=== PATIENT | male | born 1960 | race Caucasian/White ===

== ENCOUNTER 2019-11-20 12:43 | Outpatient (CLI) | payer OTHER, SELFPAY ==
[2019-11-20 13:56] LABS: Blood Urea Nitrogen 19 mg/dL (9-20); Calcium 10.6 mg/dL (8.4-10.2); Carbon Dioxide 30 mmol/L (22-30); Chloride 100 mmol/L (98-107); Estimated Glomerular Filt Rate > 60; Glucose 169 mg/dL (75-110); Potassium 4.1 mmol/L (3.4-5.0); Sodium 139 mmol/L (137-145)
[2019-11-20 13:58] LABS: Hemoglobin A1C 6.9 % (<5.7)
== END 2019-11-20 12:44 | disposition home or self-care (01) ==
PROVIDERS: PCP Internal Medicine; Visit Provider Internal Medicine
DX: E11.9 Type 2 diabetes mellitus without complications (principal)
CPT/HCPCS: 36415; 80048; 83036

== ENCOUNTER 2019-11-25 10:30 | Outpatient (RCR) | payer OTHER, SELFPAY ==
--- NOTE | 2019-10-28 14:01 | PTOPEVAL ---
Thank you for referring this patient to [facility]. Please review, sign, date and return this plan of care RUPERT. Pt referred to therapy due to right shoulder pain. He demonstrates decreased shoulder motion with scapular and shoulder weakness. He requires additional skilled therapy to address UE impairment and improve function to achieve therapy goals. Cont PT 2x/wk x 4-6 wk. I agree with and certify that the following plan of care is medically necessary. Referring Physician Date Attending Provider: Sara Mtoa NP Referring Provider: *PT Outpatient Evaluation Start: 10/28/19 10:30 Freq: Status: Active Protocol: Document 10/28/19 10:31 CAP (Rec: 10/28/19 11:26 [facility] [email or web address]) Therapy Assessment Status Assessment Status Assessment Status Evaluation Outpatient Past Medical History Cardiovascular History Hx Hypertension Yes Musculoskeletal History Hx Back Pain Yes: 40 years Hx Fractures Yes: ribs Hx Other Musculoskeletal Disorders Yes: cervical and lumbar radiculopathy Endocrine History Hx Diabetes Yes Evaluation Information Problem Diagnosis right shoulder pain Onset 2 years Cause unknown Subjective Information He fell Jul 2019 and broke Query Text:As Reported By Patient/ ribs on right side. He reached Family with his right arm when he fell. States the fall caused his shoulder pain to increase. He reports limitations with all reaching act due to pain. He is able to perform the motion as necessary. He is able to carry objects if held in lower position. Unable to perform carrying above chest level. He reports tightness and radiating symptoms of soila UE. He does not perform regular stretching or fitness program Previous Treatments Previous Treatments For This Problem no Prior Level of Function Activity Level (Last 3 Months) Occupation caregiver of parents Hand Dominance Right Activity of Daily Living Ability Independent Indoor/Home Mobility Independent Community Mobility Independent Cooking Yes Cleaning Yes Laundry Yes Shopping Yes Driving Yes Medications Home Meds (Include: OTC, RX, Vitamins, muscle relaxtor and
--- NOTE | 2019-11-02 15:27 | PCPTNOTE ---
Patient did not show up for scheduled appointment this date.
--- NOTE | 2019-11-04 14:31 | PCPTNOTE ---
Patient called & cancelled scheduled appointment this date unable to get car started.
--- NOTE | 2019-11-04 15:08 | PCPTNOTE ---
Patient did not show up for scheduled appointment this date. Called pt regarding 3rd no show/cancel therapy appt for the month. left message for pt to call otherwise remaining appts will be removed.
--- NOTE | 2019-11-13 10:59 | PCPTNOTE ---
Patient did not show up for scheduled appointment this date. Called and left message regarding his repeated no show. Reminded him of his appt next week. If he does not attend his appt, will cancel his remaining appt and plan for DC.
--- NOTE | 2019-11-25 11:40 | PTOPEVAL ---
Thank you for referring this patient to [facility]. Please review, sign, date and return this plan of care RUPERT. Pt has received 6 therapy visits to address chronic right shoulder pain. He demonstrates improved shoulder motion with improved soila shoulder strength. He reports no changes with pain or UE function. He is progressing slowly towards therapy goals. Recommend additional skilled therapy 2x/wk x 3-4 wk to achieve therapy goals I agree with and certify that the following plan of care is medically necessary. Referring Physician Date Attending Provider: Sara Mota NP Referring Provider: TulioPT Outpatient Re-Evaluation Start: 10/28/19 10:30 Freq: Status: Active Protocol: Document 11/25/19 10:31 MELY (Rec: 11/25/19 11:10 [facility] [email or web address]) Therapy Assessment Status Assessment Status Assessment Status Re-evaluation Outpatient Past Medical History Evaluation Information Problem Diagnosis right shoulder pain Onset 2 years Cause unknown Additional Evaluation Detail He fell Jul 2019 and broke ribs on right side. He reached with his right arm when he fell. States the fall caused his shoulder pain to increase. He does not perform regular stretching or fitness program. Subjective Information update: He reports cont pain of right shoulder that increases with motion in all directions. He is able to carrying objects without changes in pain, but has pain if lifting overhead. He reports intermittent numbness and tingling into soila UE and hands. Denies a specific activity that causes the symptoms. Reports he is performing his HEP daily. Does not feel the shoulder motion has not changed. Pain Assessment Timing of Pain Assessment Timing of Pain Assessment Re-assessment Pain Scale Pain Scale Used Numeric (1 - 10) Self Report Pain Assessment Right Shoulder(s) Reported Pain Level 2 Pain Description Aching,With Movement Pain Frequency Chronic Current Pain Intensity 2 Greatest Pain Intensity 9 Pain Aggravating Factors ADL's,Exercise/Activity, Lifting Pain Behaviors None Pain Score Pain Score
--- NOTE | 2019-12-01 11:37 | PCPTNOTE ---
Patient called & cancelled scheduled appointment this date due to stating he didn't want to chance getting sick due to caring for elderly mother.
--- NOTE | 2019-12-03 08:27 | PCPTNOTE ---
Patient called & cancelled scheduled appointment this date due to no reason provided. He does have additional appt scheduled.
--- NOTE | 2019-12-07 13:56 | PCPTNOTE ---
Patient did not show up for scheduled appointment this date. Will DC pt due to repeated NS/cancel. Multiple attempts have been made to contact pt regarding his therapy.
--- NOTE | 2019-12-07 14:01 | PCPTNOTE ---
Admitting Provider: Attending Provider: Sara Mota NP Patient:Matt Hodges Date of :1960 Patient has not returned for any further treatments since 11/25/2019, therefore he will be discharged from therapy at this time. He was seen for 6 therapy visits from 10/28/19-12/07/19 with 6 no show or cancelled appointments. The goals have been partially achieved. Thank you for referring this patient to [facility]. Please review, sign, date and return this discharge summary RUPERT. I have been updated about the patient's current status and I agree with discharge from the above service at this time. Referring Physician Date
== END 2020-01-12 12:30 | disposition home or self-care (01) ==
LOC: ANHPT 10:30
PROVIDERS: PCP Internal Medicine; Visit Provider Nurse Practitioner
DX: M25.511 Pain in right shoulder (principal)
CPT/HCPCS: 97110; 97140; 97162

== ENCOUNTER 2020-03-07 10:07 | Outpatient (CLI) | payer OTHER, SELFPAY ==
[2020-03-07 10:49] LABS: Hemoglobin A1C 6.6 % (<5.7)
[2020-03-07 10:54] LABS: Blood Urea Nitrogen 22 mg/dL (9-20); Carbon Dioxide 29 mmol/L (22-30); Chloride 101 mmol/L (98-107); Cholesterol 192 mg/dL (0-200); Estimated Glomerular Filt Rate > 60; Glucose 115 mg/dL (75-110); HDL Direct 43 mg/dL; Potassium 3.8 mmol/L (3.4-5.0); Sodium 139 mmol/L (137-145); Triglycerides 228 mg/dL (<150)
[2020-03-07 11:04] LABS: LDL Cholesterol Direct 109 mg/dL
== END 2020-03-07 10:08 | disposition home or self-care (01) ==
LOC: ANHLAB 10:09
PROVIDERS: PCP Internal Medicine; Visit Provider Internal Medicine
DX: E11.9 Type 2 diabetes mellitus without complications (principal)
CPT/HCPCS: 36415; 80048; 80061; 83036

== ENCOUNTER 2020-06-30 16:08 | Outpatient (CLI) | payer OTHER, SELFPAY ==
[2020-06-30 16:33] LABS: Basophils Absolute Auto 0.1 K/mm3 (0.0-0.1); Basophils Percent Auto 0.6 % (0.2-1.2); Eosinophils Absolute Auto 0.5 K/mm3 (0-0.3); Eosinophils Percent Auto 6.5 % (0-4.4); Hematocrit 45.5 % (42.0-52.0); Hemoglobin 15.7 g/dL (14.0-18.0); Immature Granulocyte Absolute 0.04 K/mm3 (0.00-0.031); Immature Granulocyte Percent A 0.5 % (0-0.5); Lymphocytes Absolute Auto 2.14 K/mm3 (0.9-3.2); Lymphocytes Percent Auto 27.4 % (18.3-44.2); Mean Corpuscular HGB Conc 34.5 g/dl (32-36); Mean Corpuscular Hemoglobin 31.2 pg (26-34); Mean Corpuscular Volume 90.3 fl (80-100); Mean Platelet Volume 10.2 fl (7.4-10.4); Monocytes Absolute Auto 0.7 K/mm3 (0.1-0.6); Monocytes Percent Auto 8.5 % (2.6-8.5); Neutrophils Absolute Auto 4.4 K/mm3 (1.3-6.7); Neutrophils Percent Auto 56.5 % (45.5-73.1); Platelet Count Result 230 k/mm3 (150-375); Red Blood Count 5.04 M/mm3 (4.6-6.20); Red Cell Distribution Width 13.2 % (11.5-14.5); White Blood Count 7.8 K/mm3 (4.5-10.0)
[2020-06-30 16:59] LABS: Alanine Aminotransferase 31 U/L (4-50); Albumin Level 4.4 g/dL (3.5-5.1); Alkaline Phosphatase 67 U/L (38-126); Anion Gap 7 mmol/L (8-16); Aspartate Amino Transferase 26 U/L (17-59); Bilirubin,Total 0.6 mg/dL (0.2-1.3); Blood Urea Nitrogen 17 mg/dL (9-20); Calcium 9.8 mg/dL (8.4-10.2); Carbon Dioxide 30 mmol/L (22-30); Chloride 104 mmol/L (98-107); Estimated Glomerular Filt Rate > 60; Glucose 112 mg/dL (75-110); Potassium 3.8 mmol/L (3.4-5.0); Sodium 141 mmol/L (137-145)
[2020-06-30 18:07] LABS: Hemoglobin A1C 6.8 % (<5.7)
== END 2020-06-30 16:09 | disposition home or self-care (01) ==
LOC: ANHLAB 16:11
PROVIDERS: PCP Internal Medicine; Visit Provider Nurse Practitioner
DX: E11.49 Type 2 diabetes mellitus with other diabetic neurological complication (principal)
CPT/HCPCS: 36415; 80053; 83036; 85025

== ENCOUNTER 2020-09-12 15:15 | Outpatient (CLI) | payer OTHER, SELFPAY ==
--- NOTE | ~2020-09-12 | XR_ITS ---
XR knee RT 3V DATE: 09/12/2020 15:44 INDICATION: Sudden pain and swelling of right knee TECHNIQUE: 3 views including crosstable lateral COMPARISON: None FINDINGS: There is mild periarticular spurring at the medial and patellofemoral compartments. There is mild chondrocalcinosis at the medial and lateral compartments. There is mild loss of height of the medial compartment. No fracture or dislocation, periosteal reaction or bone destruction. No joint effusion is evident. IMPRESSION: Chondrocalcinosis Osteoarthritis Reviewed, dictated and finalized at location A. [facility]ELANCE
== END 2020-09-12 15:16 | disposition home or self-care (01) ==
PROVIDERS: PCP Internal Medicine; Visit Provider Nurse Practitioner
DX: M17.11 Unilateral primary osteoarthritis, right knee (principal); M11.261 Other chondrocalcinosis, right knee
CPT/HCPCS: 73562

== ENCOUNTER 2020-10-06 11:22 | Outpatient (CLI) | payer BC, SELFPAY ==
[2020-10-06 12:14] LABS: Anion Gap 3 mmol/L (8-16); Blood Urea Nitrogen 13 mg/dL (9-20); Calcium 9.7 mg/dL (8.4-10.2); Carbon Dioxide 35 mmol/L (22-30); Chloride 103 mmol/L (98-107); Estimated Glomerular Filt Rate > 60; Glucose 98 mg/dL (75-110); Potassium 3.9 mmol/L (3.4-5.0); Sodium 141 mmol/L (137-145)
[2020-10-06 12:52] LABS: Hemoglobin A1C 6.4 % (<5.7)
[2020-10-06 13:00] LABS: Creatinine Urine 129.3 mg/dL
[2020-10-06 13:05] LABS: MALB Creatinine Ratio 9.7 mg/g (0-30); Microalbumin Urine Random 12.6 mg/L (0-16.7)
== END 2020-10-06 11:23 | disposition home or self-care (01) ==
LOC: ANHLAB 11:23
PROVIDERS: PCP Internal Medicine; Visit Provider Nurse Practitioner
DX: E11.9 Type 2 diabetes mellitus without complications (principal)
CPT/HCPCS: 36415; 80048; 82043; 83036

== ENCOUNTER → 2021-07-17 15:21 | Outpatient (CLI) | payer BC, OTHER, SELFPAY ==
--- NOTE | ~2021-07-17 | XR_ITS ---
XR knee LT 3V DATE: 07/17/2021 15:38 INDICATION: Left knee pain TECHNIQUE: AP, lateral, sunrise views COMPARISON: None FINDINGS: There is mild suprapatellar knee joint effusion. There is mild periarticular spurring of the patella. There is moderately severe loss of medial compar tment joint space height. There is chondrocalcinosis, best demonstrated at the lateral compartment. No fracture, dislocation, periosteal reaction or bone destruction is evident. IMPRESSION: Osteoarthritis, involving the medial compartment particularly Chondrocalcinosis Knee joint effusion Reviewed, dictated and finalized at location A.
== END ==
PROVIDERS: PCP Internal Medicine; Visit Provider Internal Medicine
DX: M25.562 Pain in left knee (principal); M17.12 Unilateral primary osteoarthritis, left knee; M22.2X2 Patellofemoral disorders, left knee; M25.462 Effusion, left knee
CPT/HCPCS: 73562

== ENCOUNTER 2021-08-18 08:43 | Outpatient (RCR) | payer BC, OTHER, SELFPAY ==
[2021-08-18] MEDS: FAMOTIDINE 20 MG TABLET PO (11:07)
[2021-08-18] MEDS: diphenhydrAMINE HCl CAP 25 MG CAPSULE PO (11:07)
[2021-08-18] MEDS: ACETAMINOPHEN 325 MG TABLET 650 MG PO (11:07)
[2021-08-18 11:08] VITALS: BP 150/83; PULSE 117; RESP 20; TEMP 36.8; O2SAT 94
[2021-08-18 12:44] VITALS: BP 135/84
--- NOTE | 2021-08-21 09:27 | PC.NURSE ---
Tried to call Mr Hodges, and had to leave a message to have him call me back.
--- NOTE | 2021-08-21 10:11 | PC.NURSE ---
Patient states he is feeling better after monoclonal antibody infusion.
== END 2021-08-18 17:00 ==
LOC: AMCINF 08:43
PROVIDERS: PCP Internal Medicine; Visit Provider Internal Medicine Hematology & Oncology
DX: U07.1 COVID-19 (principal)
CPT/HCPCS: A9270; M0243; Q0243

== ENCOUNTER 2022-04-04 11:57 | Outpatient (CLI) | payer BC, MEDICAID, SELFPAY ==
--- NOTE | ~2022-04-04 | US_ITS ---
EXAMINATION: US venous doppler [facility] DATE: 04/04/2022 13:10 INDICATION: Left lower limb pain TECHNIQUE: Grayscale ultrasound images without and with compression and Doppler ultrasound images of the left lower extremity veins were obtained. COMPARISON: None. FINDINGS: The visualized portions of left common femoral vein, profunda (deep) femoral vein, femoral vein, popl iteal vein, peroneal veins, posterior tibial veins, gastrocnemius vein and greater saphenous vein out flow are patent. IMPRESSION: 1. No deep venous thrombosis in the left lower limb. Reviewed, dictated and finalized at location A.
== END 2022-04-04 11:58 | disposition home or self-care (01) ==
PROVIDERS: PCP Internal Medicine; Visit Provider Nurse Practitioner
DX: M79.89 Other specified soft tissue disorders (principal)
CPT/HCPCS: 93971

== ENCOUNTER 2023-12-30 13:44 | Outpatient (CLI) | payer MEDICARE, SELFPAY ==
[2023-12-30 19:20] LABS: Basophils Absolute Auto 0.1 K/mm3 (0.0-0.1); Basophils Percent Auto 0.8 % (0.2-1.2); Eosinophils Absolute Auto 0.4 K/mm3 (0-0.3); Eosinophils Percent Auto 4.2 % (0-4.4); Hematocrit 52.4 % (42.0-52.0); Immature Granulocyte Absolute 0.07 K/mm3 (0.00-0.031); Immature Granulocyte Percent A 0.8 % (0-0.5); Lymphocytes Absolute Auto 2.73 K/mm3 (0.9-3.2); Lymphocytes Percent Auto 30.8 % (18.3-44.2); Mean Corpuscular HGB Conc 32.4 g/dl (32-36); Mean Corpuscular Hemoglobin 30.5 pg (26-34); Mean Corpuscular Volume 93.9 fl (80-100); Mean Platelet Volume 12.4 fl (7.4-10.4); Monocytes Absolute Auto 0.7 K/mm3 (0.1-0.6); Neutrophils Absolute Auto 4.9 K/mm3 (1.3-6.7); Neutrophils Percent Auto 55.4 % (45.5-73.1); Platelet Count Result 208 k/mm3 (150-375); Red Blood Count 5.58 M/mm3 (4.6-6.20); Red Cell Distribution Width 13.4 % (11.5-14.5); White Blood Count 8.9 K/mm3 (4.5-10.0)
[2023-12-30 22:04] LABS: Alanine Aminotransferase 43 U/L (6-50); Albumin Level 4.8 g/dL (3.5-5.1); Alkaline Phosphatase 65 U/L (38-126); Anion Gap 11 mmol/L (4-12); Aspartate Amino Transferase 33 U/L (17-59); Bilirubin,Total 0.7 mg/dL (0.2-1.3); Blood Urea Nitrogen 22 mg/dL (9-20); Calcium 10.8 mg/dL (8.4-10.2); Carbon Dioxide 29 mmol/L (22-30); Chloride 105 mmol/L (98-107); Cholesterol 257 mg/dL (0-200); Estimated Glomerular Filt Rate 47; Glucose 92 mg/dL (65-110); HDL Direct 36 mg/dL; Potassium 5.2 mmol/L (3.4-5.0); Sodium 145 mmol/L (137-145); Triglycerides 207 mg/dL (<150)
[2023-12-30 22:16] LABS: Creatinine Urine 424.8 mg/dL; MALB Creatinine Ratio 13.4 mg/g (0-30)
[2023-12-30 22:30] LABS: LDL Cholesterol Direct 164 mg/dL
[2023-12-30 22:35] LABS: Prostate Specific Antigen 1.2 ng/mL (< OR = 4.0)
[2023-12-30 23:07] LABS: Hemoglobin A1C 8.3 % (<5.7)
[2024-01-03 10:25] LABS: Testosterone Free 45.8 pg/mL (35.0-155.0); Testosterone Total 338 ng/dL (250-1100)
== END 2023-12-30 13:45 | disposition home or self-care (01) ==
LOC: ANHGOSHLAB 13:47
PROVIDERS: PCP Nurse Practitioner; Visit Provider Clinical Nurse Specialist
DX: Z12.5 Encounter for screening for malignant neoplasm of prostate (principal); E11.9 Type 2 diabetes mellitus without complications; E29.1 Testicular hypofunction; I10 Essential (primary) hypertension; R74.01 Elevation of levels of liver transaminase levels
CPT/HCPCS: 36415; 80053; 80061; 82043; 83036; 84153; 84402; 84403; 85025; G0103

== ENCOUNTER 2024-05-01 16:05 | Outpatient (CLI) | payer MEDICARE, SELFPAY ==
[2024-05-01 18:38] LABS: Alanine Aminotransferase 50 U/L (6-50); Albumin Level 4.7 g/dL (3.5-5.1); Alkaline Phosphatase 76 U/L (38-126); Anion Gap 10 mmol/L (4-12); Aspartate Amino Transferase 37 U/L (17-59); Bilirubin,Total 0.8 mg/dL (0.2-1.3); Blood Urea Nitrogen 33 mg/dL (9-20); Calcium 10.1 mg/dL (8.4-10.2); Carbon Dioxide 32 mmol/L (22-30); Chloride 97 mmol/L (98-107); Cholesterol 223 mg/dL (0-200); Estimated Glomerular Filt Rate 29; Glucose 221 mg/dL (65-110); HDL Direct 35 mg/dL; Potassium 4.6 mmol/L (3.4-5.0); Sodium 139 mmol/L (137-145); Triglycerides 221 mg/dL (<150)
[2024-05-01 18:46] LABS: Basophils Absolute Auto 0.1 K/mm3 (0.0-0.1); Basophils Percent Auto 0.8 % (0.2-1.2); Eosinophils Absolute Auto 0.3 K/mm3 (0-0.3); Eosinophils Percent Auto 2.5 % (0-4.4); Hematocrit 47.6 % (42.0-52.0); Immature Granulocyte Absolute 0.09 K/mm3 (0.00-0.031); Immature Granulocyte Percent A 0.9 % (0-0.5); Lymphocytes Absolute Auto 2.34 K/mm3 (0.9-3.2); Lymphocytes Percent Auto 23.3 % (18.3-44.2); Mean Corpuscular HGB Conc 33.6 g/dl (32-36); Mean Corpuscular Hemoglobin 31.6 pg (26-34); Mean Corpuscular Volume 93.9 fl (80-100); Mean Platelet Volume 11.6 fl (7.4-10.4); Monocytes Absolute Auto 0.8 K/mm3 (0.1-0.6); Neutrophils Absolute Auto 6.5 K/mm3 (1.3-6.7); Neutrophils Percent Auto 64.5 % (45.5-73.1); Platelet Count Result 236 k/mm3 (150-375); Red Blood Count 5.07 M/mm3 (4.6-6.20); Red Cell Distribution Width 13.8 % (11.5-14.5)
[2024-05-01 18:49] LABS: LDL Cholesterol Direct 142 mg/dL
[2024-05-01 19:00] LABS: Hemoglobin A1C 8.7 % (<5.7)
== END 2024-05-01 16:06 | disposition home or self-care (01) ==
LOC: ANHGOSHLAB 16:07
PROVIDERS: PCP Internal Medicine; Visit Provider Nurse Practitioner
DX: E11.9 Type 2 diabetes mellitus without complications (principal); E78.00 Pure hypercholesterolemia, unspecified
CPT/HCPCS: 36415; 80053; 80061; 83036; 85025

== ENCOUNTER 2024-05-07 10:21 | Outpatient (CLI) | payer MEDICARE, SELFPAY ==
[2024-05-07 14:50] LABS: Hepatitis C Virus Antibody Negative (Negative)
[2024-05-08 13:53] LABS: Protein, Total 7.7 g/dL (6.1-8.1)
[2024-05-08 15:34] LABS: Creatinine, Random Urine 202 mg/dL (20-320); Total Prot/Creat ratio mg/mg 0.084 (0.025-0.148); Total Protein/Creatinine Ratio 84 mg/g creat (25-148)
[2024-05-09 08:34] LABS: ANA Cascade Screen NEGATIVE (NEGATIVE)
[2024-05-11 13:24] LABS: Abnormal Protein Band 1 0.1 g/dL (NONE DETECTED); Albumin 4.1 g/dL (3.8-4.8); Alpha 1 Globulin 0.3 g/dL (0.2-0.3); Alpha 2 Globulin 0.9 g/dL (0.5-0.9); Beta 1 Globulin 0.5 g/dL (0.4-0.6); Gamma Globulin 1.4 g/dL (0.8-1.7)
== END 2024-05-07 10:22 | disposition home or self-care (01) ==
PROVIDERS: PCP Internal Medicine; Visit Provider Nurse Practitioner
DX: R94.4 Abnormal results of kidney function studies (principal)
CPT/HCPCS: 36415; 82570; 84155; 84156; 84165; 84166; 86038; 86225; 86235; 86364; 86803